=== PATIENT | female | born 1930 | race Caucasian/White ===

== ENCOUNTER 2017-11-22 08:05 | Inpatient (IN) | payer MEDICARE ==
[~2017-11-22] VITALS: Ht 154.9 cm; Wt 84.1 kg
[2017-11-22] VITALS (11 sets, daily range): BP systolic 108–196; BP diastolic 56–90; PULSE 64–80; RESP 18–20; TEMP 97.3–98.9; O2SAT 91–96
[2017-11-22] MEDS ORDERED: AMIT50TA3 PO (08:20)
[2017-11-22] MEDS ORDERED: ANAS1TAB PO (08:20)
[2017-11-22] MEDS ORDERED: CYAN100025 SL (08:20)
[2017-11-22] MEDS ORDERED: METO25TA3 PO (08:20)
[2017-11-22] MEDS ORDERED: LOSA100T PO (08:20)
[2017-11-22] MEDS ORDERED: GLIM4TAB PO (08:20)
[2017-11-22] MEDS ORDERED: LEVO88TA2 PO (08:20)
[2017-11-22] MEDS ORDERED: LANTINJ SQ (08:20)
[2017-11-22] MEDS ORDERED: CENTCHW4 CHEW (08:20)
[2017-11-22] MEDS ORDERED: ASPI-516 CHEW (08:20)
[2017-11-22] MEDS ORDERED: PRAM1TAB PO (08:20)
[2017-11-22] MEDS ORDERED: ATOR10TA15 PO (08:20)
[2017-11-22] MEDS ORDERED: PRAM0.5T PO (08:20)
[2017-11-22] MEDS ORDERED: VITA2000 PO (08:20)
[2017-11-22] MEDS ORDERED: ISOS120T PO (08:20)
[2017-11-22] MEDS ORDERED: AMLO2.5T PO (08:20)
--- NOTE | 2017-11-22 08:40 | PD ---
HPI Chief Complaint: ENT Complaint Time Seen by Provider: 08:27 Travel History International Travel<30 days: No Contact w/Intl Traveler<30days: No Traveled to known affect area: No History of Present Illness HPI Patient presents via [facility] with numerous complaints from [facility]. Reports of general malaise and weakness with bilateral hip pain and sore throat since yesterday. She did receive a flu shot this year. Denies nausea vomiting diarrhea. Questionable subjective fever. Reports decreased appetite over the last 4 days. Denies any chest pain shortness of breath urinary or bowel symptoms. Reports occasional cough. Hip pain is constant without aggravating or alleviating factors. 3 out of 10. Denies any misstep or falls. Upon further questioning patient currently recalls being on an antibiotic for UTI but unsure of what it is. Past medical history for Parkinson's, hypertension, diabetes, hyperlipidemia, coronary artery disease, hypothyroidism, history of breast cancer and COPD with O2 use at night which she does not do secondary to noise. Denies history of heart failure or renal failure. PFSH Past Medical History Cancer: Yes Cardiovascular Problems: Yes High Cholesterol: Yes Diabetes: Yes Patient Takes Glucophage: No Diminished Hearing: No Hypertension: Yes Thyroid Disease: Yes Influenza Vaccination: Yes ?: Not Past Surgical History Appendectomy: Yes Joint Replacement: Yes Tympanostomy Tube: Yes Other Surgery: Yes (right lumpectomy) Social History Alcohol Use: No Tobacco Use: No Allergies-Medications (Allergen,Severity, Reaction): Coded Allergies: diphtheria,pertussis (acellular),te (Verified Allergy, Unknown, 11/22/17) Reported Meds & Prescriptions Reported Meds & Active Scripts Active Reported Lantus Solostar Pen Inj (Insulin Glargine) 300 Unit/3 Ml Pen 15 Units SQ HS Vitamin D3 (Cholecalciferol) 2,000 Unit Cap 2,000 Units PO DAILY Pramipexole (Pramipexole Dihydrochloride) 1 Mg Tab 1 Mg PO HS Pramipexole (Pramipexole Dihydrochloride) 0.5 Mg Tab 0.5 Mg PO DAILY Metoprolol Tartrate 25 Mg Tab 25 Mg PO BID Losartan (Losartan Potassium) 100 Mg Tab 100 Mg PO DAILY Levothyroxine (Levothyroxine Sodium) 88 Mcg Tab 88 Mcg PO DAILY Isosorbide Mononitrate ER (Isosorbide Mononitrate) 120 Mg Esperanza 120 Mg PO DAILY Glimepiride 4 Mg Tab 4 Mg PO DAILY Take with breakfast or first main meal B-12 (Cyanocobalamin) 1,000 Mcg Subl 1,000 Mcg SL DAILY Centrum (Multiple Vitamins W/ Minerals) 1 Chew 1 Tab CHEW DAILY Atorvastatin (Atorvastatin Calcium) 10 Mg Tab 10 Mg PO HS Aspirin 81 Mg Chew 81 Mg CHEW DAILY Anastrozole 1 Mg Tab 1 Mg PO DAILY Amlodipine (Amlodipine Besylate) 2.5 Mg Tab 2.5 Mg PO DAILY Amitriptyline (Amitriptyline HCl) 50 Mg Tab 50 Mg PO HS Review of Systems ROS Limitations: Poor Historian General / Constitutional: Positive: Fever Eyes: No: Visual changes HENT: Positive: Sore Throat, No: Headaches Cardiovascular: No: Chest Pain or Discomfort Respiratory: Positive: Cough, No: Shortness of Breath Gastrointestinal: No: Abdominal Pain Genitourinary: No: Dysuria Musculoskeletal: Positive: Myalgias, Arthralgias, No: Pain Skin: No Rash Neurologic: No: Weakness Psychiatric: No: Depression Endocrine: No: Polydipsia Hematologic/Lymphatic: No: Easy Bruising Physical Exam Narrative GENERAL: Well-nourished, well-developed patient. SKIN: Focused skin assessment warm/dry. HEAD: Normocephalic. EYES: No scleral icterus. No injection or drainage. NECK: Supple, trachea midline. No JVD or lymphadenopathy. CARDIOVASCULAR: Regular rate and rhythm without murmurs, gallops, or rubs. RESPIRATORY: Breath sounds equal bilaterally. No accessory muscle use. GASTROINTESTINAL: Abdomen soft, non-tender, nondistended. MUSCULOSKELETAL: No cyanosis, or edema. BACK: Nontender without obvious deformity. No CVA tenderness. Data Data Last Documented VS Vital Signs Date Time Temp Pulse Resp B/P (MAP) Pulse Ox O2 Delivery O2 Flow Rate FiO2 11/22/17 10:54 80 18 147/67 (93) 92 Room Air 11/22/17 08:07 98.9 Orders Orders Complete Blood Count With Diff (11/22/17 08:27) Comprehensive Metabolic Panel (11/22/17 08:27) Urinalysis - C+S If Indicated (11/22/17 08:27) Chest, Single Ap (11/22/17 ) Influenzae A/B Antigen (11/22/17 08:27) Urine Culture (11/22/17 08:40) B-Type Natriuretic Peptide (11/22/17 09:39) Ceftriaxone Inj (Rocephin Inj) (11/22/17 09:45) Potassium Chloride (Kcl) (11/22/17 10:15) Sodium Chlor 0.9% 1000 Ml Inj (Ns 1000 M (11/22/17 11:15) Labs Laboratory Tests Test 11/22/17 08:35 11/22/17 08:40 White Blood Count 9.0 TH/MM3 Red Blood Count 3.65 MIL/MM3 Hemoglobin 11.5 GM/DL Hematocrit 33.4 % Mean Corpuscular Volume 91.7 FL Mean Corpuscular Hemoglobin 31.4 PG Mean Corpuscular Hemoglobin Concent 34.3 % Red Cell Distribution Width 14.7 % Platelet Count 188 TH/MM3 Mean Platelet Volume 6.9 FL Neutrophils (%) (Auto) 84.2 % Lymphocytes (%) (Auto) 3.5 % Monocytes (%) (Auto) 5.6 % Eosinophils (%) (Auto) 5.3 % Basophils (%) (Auto) 1.4 % Neutrophils # (Auto) 7.6 TH/MM3 Lymphocytes # (Auto) 0.3 TH/MM3 Monocytes # (Auto) 0.5 TH/MM3 Eosinophils # (Auto) 0.5 TH/MM3 Basophils # (Auto) 0.1 TH/MM3 CBC Comment DIFF FINAL Differential Comment Blood Urea Nitrogen 43 MG/DL Creatinine 3.10 MG/DL Random Glucose 100 MG/DL Total Protein 7.2 GM/DL Albumin 3.4 GM/DL Calcium Level 8.2 MG/DL Alkaline Phosphatase 107 U/L Aspartate Amino Transf (AST/SGOT) 24 U/L Alanine Aminotransferase (ALT/SGPT) 28 U/L Total Bilirubin 0.4 MG/DL Sodium Level 137 MEQ/L Potassium Level 3.2 MEQ/L Chloride Level 102 MEQ/L Carbon Dioxide Level 25.4 MEQ/L Anion Gap 10 MEQ/L Estimat Glomerular Filtration Rate 14 ML/MIN B-Type Natriuretic Peptide 108 PG/ML Urine Collection Type CATH Urine Color YELLOW Urine Turbidity CLEAR Urine pH 5.0 Urine Specific [place] 1.010 Urine Protein TRACE mg/dL Urine Glucose (UA) NEG mg/dL Urine Ketones NEG mg/dL Urine Occult Blood MOD Urine Nitrite POS Urine Bilirubin NEG Urine Urobilinogen 0.2 MG/DL Urine Leukocyte Esterase NEG Urine RBC 50-99 /hpf Urine WBC 0-2 /hpf Urine Squamous Epithelial Cells 6-8 /hpf Urine Bacteria FEW /hpf Microscopic Urinalysis Comment CATH-CULTURE IND Urine Collection Time 08:40 [facility] Medical Decision Making Medical Screen Exam Complete: Yes Emergency Medical Condition: Yes Differential Diagnosis Influenza, viral syndrome, osteoarthritis, pharyngitis, UTI Narrative Course Assessment plan discussed patient bedside. Urinalysis is positive for nitrates. CBC reveals mild anemia without elevation of white count. CMP reveals a hypokalemia and renal insufficiency with a BUN/creatinine of 43 and 3.1 unknown chronicity. Last 72 hours Impressions Chest X-Ray 11/22/17 0000 Signed Impressions: Service Date/Time: Wednesday, November 22, 2017 08:51 - CONCLUSION: Radiographic findings suggestive of congestive heart failure and pulmonary edema. This appearance is also compatible with viral infection or atypical pneumonia. Consider upright PA and lateral views when clinically able. Ericka Leo MD Physician Communication Physician Communication Spoke with Dr. Chapman who is in agreement will admit for observation and assessment of renal function and IV treatment for UTI Diagnosis Primary Impression: UTI (urinary tract infection) Qualified Codes: N39.0 - Urinary tract infection, site not specified; R31.9 - Hematuria, unspecified Additional Impression: Renal insufficiency John Velásquez MD Nov 22, 2017 08:40
[2017-11-22 08:49] LABS: BILIRUBIN, URINE NEG (NEG); BLOOD, URINE MOD (NEG); GLUCOSE,URINE NEG (NEG); KETONE, URINE NEG (NEG); NITRITE,URINE POS (NEG); URINE COLOR YELLOW (YELLW/STRAW); URINE LEUKOCYTE ESTERASE NEG (NEG)
[2017-11-22 08:50] LABS: AUTOMATED NEUTROPHIL # 7.6 TH/MM3 (1.8-7.7); BASOPHIL # 0.1 TH/MM3 (0-0.2); BASOPHIL % 1.4 % (0.0-2.0); EOSINOPHIL # 0.5 TH/MM3 (0-0.4); EOSINOPHIL % 5.3 % (0.0-4.0); HEMATOCRIT 33.4 % (35.0-46.0); HEMOGLOBIN 11.5 GM/DL (11.6-15.3); LYMPH % 3.5 % (9.0-44.0); LYMPHOCYTE # 0.3 TH/MM3 (1.0-4.8); MEAN CELL VOLUME 91.7 FL (80.0-100.0); MEAN CORPUSCULAR HEMOGLOBIN 31.4 PG (27.0-34.0); MEAN CORPUSCULAR HGB CONC 34.3 % (32.0-36.0); MEAN PLATELET VOLUME 6.9 FL (7.0-11.0); MONO % 5.6 % (0.0-8.0); MONOCYTE # 0.5 TH/MM3 (0-0.9); NEUT % 84.2 % (16.0-70.0); PLATELET COUNT 188 TH/MM3 (150-450); RED BLOOD COUNT 3.65 MIL/MM3 (4.00-5.30); RED CELL DISTRIBUTION WIDTH 14.7 % (11.6-17.2)
[2017-11-22 08:53] LABS: WBC, URINE 0-2 /hpf (0-5)
[2017-11-22 08:54] LABS: BACTERIA, URINE FEW /hpf
[2017-11-22 08:59] LABS: CHLORIDE 102 MEQ/L (98-107); SODIUM (NA) 137 MEQ/L (136-145)
[2017-11-22 09:02] LABS: ALBUMIN 3.4 GM/DL (3.4-5.0); BICARBONATE 25.4 MEQ/L (21.0-32.0); BLOOD UREA NITROGEN 43 MG/DL (7-18); CALCIUM 8.2 MG/DL (8.5-10.1); GLUCOSE,RANDOM 100 MG/DL (74-106)
[2017-11-22 09:05] LABS: ALT (GPT) 28 U/L (10-53); AST (GOT) 24 U/L (15-37)
[2017-11-22 09:06] LABS: GLOMERULAR FILTRATION RATE 14 ML/MIN (>89)
[2017-11-22 09:07] LABS: TOTAL BILIRUBIN ADULT 0.4 MG/DL (0.2-1.0); TOTAL PROTEIN 7.2 GM/DL (6.4-8.2)
[2017-11-22 09:08] LABS: ALKALINE PHOSPHATASE 107 U/L (45-117)
--- NOTE | 2017-11-22 09:21 | RADRPT ---
EXAM DATE/TIME: 11/22/2017 08:51 [facility] COMPARISON: No previous studies available for comparison. INDICATIONS : Cough and congestion. MEDICAL HISTORY : None. SURGICAL HISTORY : None. ENCOUNTER: Initial ACUITY: 3 days PAIN SCORE: 5/10 LOCATION: Bilateral chest FINDINGS: Single portable upright view of the chest demonstrates mild enlargement of cardiac silhouette. Mild d iffuse cephalization of pulmonary vascular structures and bilateral predominantly basilar interstitia l prominence. The lungs are hypoinflated. Osseous structures are grossly unremarkable. There is a rig ht shoulder prosthesis present. CONCLUSION: Radiographic findings suggestive of congestive heart failure and pulmonary edema. This appearance is also compatible with viral infection or atypical pneumonia. Consider upright PA and lateral views whe n clinically able. Ericka Leo MD on November 22, 2017 at 9:17 Board Certified Radiologist. This report was verified electronically.
[2017-11-22] MEDS ORDERED: cefTRIAXone INJ 1,000 MG in SODIUM CHLORIDE 0.9% INJ 100 ML IV ONE (09:45)
[2017-11-22] MEDS ORDERED: POTASSIUM CHLORIDE 20 MEQ CONTROLLED RELEASE TAB PO ONE (10:15)
[2017-11-22] MEDS ORDERED: SODIUM CHLOR 0.9% 1000 ML INJ 1,000 ML IV ONE (11:15)
--- NOTE | 2017-11-22 13:23 | HHI.HP ---
[facility] Ad[facility] Diagnosis UTI, renal insufficiency Diagnoses: (1) UTI (urinary tract infection) (2) Renal insufficiency Chief Complaint: Generalized weakness, subjective fevers and chills Failed outpatient antibiotic for UTI Travel History International Travel<30 Days: No Contact w/Intl Traveler <30 Da: No Traveled to Known Affected Are: No History of Present Illness This is an 87-year-old female patient with a known medical history of CAD, hypercholesterolemia, diabetes, hypertension and questionable CHF who presented to the ED with complaints of generalized weakness, fevers, chills, nausea and occasional vomiting for 2 days. Patient states she was diagnosed with a UTI last week finished her antibiotic dose this morning and despite antibiotics course her symptoms have not improved but have actually worsened. She states she has bilateral CVA tenderness and hip pain, rating it a 10 out of 10 on pain scale at its worst. Denies any dysuria. Does admit to poor appetite and occasional vomiting. She also states that she has a history of PVD and history of following with a vascular surgeon for lower extremity vascular repair, but over the course of the last 2 weeks she has developed bilateral lower extremity redness and swelling and increasing pain with walking. She does have an appointment on Friday to follow-up with her vascular surgeon. She just recently moved down to [place] from [facility] and has not established with the PCP yet. Patient does live alone in assisted living. Review of Systems Constitutional: COMPLAINS OF: Diaphoretic episodes, Fatigue, Fever, Chills Eyes: DENIES: Diplopia Respiratory: COMPLAINS OF: Shortness of breath, DENIES: Cough, Sputum production Cardiovascular: DENIES: Chest pain, Palpitations Gastrointestinal: COMPLAINS OF: Nausea, Vomiting, DENIES: Abdominal pain, Black stools, Bloody stools, Constipation, Diarrhea Musculoskeletal: DENIES: Joint pain Psychiatric: COMPLAINS OF: Anxiety Except as stated in HPI: all other systems reviewed are Neg Past Family Social History Past Medical History History of CAD Hypertension Hypercholesterolemia Hypertension Thyroid disease History of breast cancer Past Surgical History Appendectomy Right hip replacement Right shoulder replacement Tympanostomy tube Unspecified vascular surgery of bilateral lower extremities Right breast lumpectomy Reported Medications Active Reported Lantus Solostar Pen Inj (Insulin Glargine) 300 Unit/3 Ml Pen 15 Units SQ HS Vitamin D3 (Cholecalciferol) 2,000 Unit Cap 2,000 Units PO DAILY Pramipexole (Pramipexole Dihydrochloride) 1 Mg Tab 1 Mg PO HS Pramipexole (Pramipexole Dihydrochloride) 0.5 Mg Tab 0.5 Mg PO DAILY Metoprolol Tartrate 25 Mg Tab 25 Mg PO BID Losartan (Losartan Potassium) 100 Mg Tab 100 Mg PO DAILY Levothyroxine (Levothyroxine Sodium) 88 Mcg Tab 88 Mcg PO DAILY Isosorbide Mononitrate ER (Isosorbide Mononitrate) 120 Mg Esperanza 120 Mg PO DAILY Glimepiride 4 Mg Tab 4 Mg PO DAILY Take with breakfast or first main meal B-12 (Cyanocobalamin) 1,000 Mcg Subl 1,000 Mcg SL DAILY Centrum (Multiple Vitamins W/ Minerals) 1 Chew 1 Tab CHEW DAILY Atorvastatin (Atorvastatin Calcium) 10 Mg Tab 10 Mg PO HS Aspirin 81 Mg Chew 81 Mg CHEW DAILY Anastrozole 1 Mg Tab 1 Mg PO DAILY Amlodipine (Amlodipine Besylate) 2.5 Mg Tab 2.5 Mg PO DAILY Amitriptyline (Amitriptyline HCl) 50 Mg Tab 50 Mg PO HS Allergies: Coded Allergies: diphtheria,pertussis (acellular),te (Verified Allergy, Unknown, 11/22/17) Active Ordered Medications Current Medications Medications (Trade) Dose Ordered Sig/Ric Route Start Time Stop Time Status Last Admin Sodium Chloride 1,000 ml @ 150 mls/hr BOLUS ONCE IV 11/22/17 11:15 11/22/17 17:54 11/22/17 11:31 Family History Paternal medical history significant for [place]. Mother had a history of hypertension and diabetes Social History Denies any tobacco use, alcohol or illicit drug use. Physical Exam Vital Signs Vital Signs Date Time Temp Pulse Resp B/P (MAP) Pulse Ox O2 Delivery O2 Flow Rate FiO2 11/22/17 12:27 162/67 (98) 92 11/22/17 10:54 80 18 147/67 (93) 92 Room Air 11/22/17 09:14 76 18 152/72 (98) 91 Room Air 11/22/17 08:07 98.9 78 18 169/56 (86) 92 Physical Exam GENERAL: Well-developed, well-nourished patient in NAD. SKIN: Warm and dry. No rash. Bilateral lower extremity erythema, mild swelling. HEAD: Normocephalic. Atraumatic. EYES: Pupils equal and round. No scleral icterus. No injection or drainage. ENT: No nasal bleeding or discharge. Mucous membranes pink and moist. NECK: Supple. Trachea midline. CARDIOVASCULAR: Regular rate and rhythm. S1, S2 noted. RESPIRATORY: No accessory muscle use. Clear to auscultation. Breath sounds equal bilaterally. GASTROINTESTINAL: Abdomen soft, non-tender, nondistended. Normoactive bowel sounds x4. : CVA tenderness. MUSCULOSKELETAL: No obvious deformities. NEUROLOGICAL: Awake and alert. No obvious cranial nerve deficits. Motor grossly within normal limits. 5/5 muscle strength in bilateral upper and lower extremities. Normal speech. PSYCHIATRIC: Appropriate mood and affect; insight and judgment normal. Laboratory Laboratory Tests Test 11/22/17 08:35 11/22/17 08:40 White Blood Count 9.0 Red Blood Count 3.65 Hemoglobin 11.5 Hematocrit 33.4 Mean Corpuscular Volume 91.7 Mean Corpuscular Hemoglobin 31.4 Mean Corpuscular Hemoglobin Concent 34.3 Red Cell Distribution Width 14.7 Platelet Count 188 Mean Platelet Volume 6.9 Neutrophils (%) (Auto) 84.2 Lymphocytes (%) (Auto) 3.5 Monocytes (%) (Auto) 5.6 Eosinophils (%) (Auto) 5.3 Basophils (%) (Auto) 1.4 Neutrophils # (Auto) 7.6 Lymphocytes # (Auto) 0.3 Monocytes # (Auto) 0.5 Eosinophils # (Auto) 0.5 Basophils # (Auto) 0.1 CBC Comment DIFF FINAL Differential Comment Blood Urea Nitrogen 43 Creatinine 3.10 Random Glucose 100 Total Protein 7.2 Albumin 3.4 Calcium Level 8.2 Alkaline Phosphatase 107 Aspartate Amino Transf (AST/SGOT) 24 Alanine Aminotransferase (ALT/SGPT) 28 Total Bilirubin 0.4 Sodium Level 137 Potassium Level 3.2 Chloride Level 102 Carbon Dioxide Level 25.4 Anion Gap 10 Estimat Glomerular Filtration Rate 14 B-Type Natriuretic Peptide 108 Urine Collection Type CATH Urine Color YELLOW Urine Turbidity CLEAR Urine pH 5.0 Urine Specific [place] 1.010 Urine Protein TRACE Urine Glucose (UA) NEG Urine Ketones NEG Urine Occult Blood MOD Urine Nitrite POS Urine Bilirubin NEG Urine Urobilinogen 0.2 Urine Leukocyte Esterase NEG Urine RBC 50-99 Urine WBC 0-2 Urine Squamous Epithelial Cells 6-8 Urine Bacteria FEW Microscopic Urinalysis Comment CATH-CULTURE IND Urine Collection Time 08:40 Date/Time Source Procedure Growth Status 11/22/17 08:30 Nasal Aspirate Influenza Types A,B Antigen (LISA) - Final NEGATIVE FOR FLU A AND B ANTIGEN.... Complete 11/22/17 08:40 Urine Clean Catch Urine Culture Pending Received Result Diagram: 11/22/17 0835 11/22/17 0835 Imaging Last Impressions Chest X-Ray 11/22/17 0000 Signed Impressions: Service Date/Time: Wednesday, November 22, 2017 08:51 - CONCLUSION: Radiographic findings suggestive of congestive heart failure and pulmonary edema. This appearance is also compatible with viral infection or atypical pneumonia. Consider upright PA and lateral views when clinically able. Ericka Leo MD Septic Shock Reassessment Septic shock perfusion: reassessment completed Caprini VTE Risk Assessment Caprini VTE Risk Assessment: Mod/High Risk (score >= 2) Caprini Risk Assessment Model Point Value = 1 Point Value = 2 Point Value = 3 Point Value = 5 Age 41-60 Minor surgery BMI > 25 kg/m2 Swollen legs Varicose veins or History of unexplained or recurrent spontaneous Oral contraceptives or hormone replacement Sepsis (< 1 month) Serious lung disease, including pneumonia (< 1 month) Abnormal pulmonary function Acute myocardial infarction Congestive heart failure (< 1 month) History of inflammatory bowel disease Medical patient at bed rest Age 61-74 Arthroscopic surgery Major open surgery (> 45 min) Laparoscopic surgery (> 45 min) Malignancy Confined to bed (> 72 hours) Immobilizing plaster cast Central venous access Age >= 75 History of VTE Family history of VTE Factor V Leiden Prothrombin [id number] Lupus anticoagulant Anticardiolipin antibodies Elevated serum homocysteine Heparin-induced thrombocytopenia Other congenital or acquired thrombophilia Stroke (< 1 month) Elective arthroplasty Hip, pelvis, or leg fracture Acute spinal cord injury (< 1 month) Prophylaxis Regimen Total Risk Factor Score Risk Level Prophylaxis Regimen 0-1 Low Early ambulation 2 Moderate Order ONE of the following: *Sequential Compression Device (SCD) *Heparin 5000 units SQ BID 3-4 Higher Order ONE of the following medications: *Heparin 5000 units SQ TID *Enoxaparin/Lovenox 40 mg SQ daily (WT < 150 kg, CrCl > 30 mL/min) *Enoxaparin/Lovenox 30 mg SQ daily (WT < 150 kg, CrCl > 10-29 mL/min) *Enoxaparin/Lovenox 30 mg SQ BID (WT < 150 kg, CrCl > 30 mL/min) AND/OR *Sequential Compression Device (SCD) 5 or more Highest Order ONE of the following medications: *Heparin 5000 units SQ TID (Preferred with Epidurals) *Enoxaparin/Lovenox 40 mg SQ daily (WT < 150 kg, CrCl > 30 mL/min) *Enoxaparin/Lovenox 30 mg SQ daily (WT < 150 kg, CrCl > 10-29 mL/min) *Enoxaparin/Lovenox 30 mg SQ BID (WT < 150 kg, CrCl > 30 mL/min) AND *Sequential Compression Device (SCD) Assessment and Plan Problem List: (1) UTI (urinary tract infection) ICD Code: N39.0 - Urinary tract infection, site not specified Status: Acute (2) Renal insufficiency ICD Code: N28.9 - Disorder of kidney and ureter, unspecified Status: Acute Assessment and Plan This is an 87-year-old female patient with a known medical history of CAD, hypercholesterolemia, diabetes, hypertension and questionable CHF who presented to the ED with complaints of generalized weakness, fevers, chills, nausea and occasional vomiting for 2 days. Urinary tract infection with abnormal UA - Patient failed outpatient therapy, recently diagnosed with UTI and finished course of antibiotics, persistent symptoms. Subjective fevers at home. UA showing bacteria. Awaiting urine culture. Placed on ceftriaxone IV. Acute on chronic kidney injury: Renal insufficiency. Creatinine on presentation 2.2. Patient is from [facility] and we do not have records to compare. Patient is unaware of prior labs her creatinine level, questionable chronic kidney disease. Will continue to monitor BMP. Will obtain urine ultrasound. Continue to follow. Avoid nephrotoxins. Congestive heart failure, unspecified type: Chest x-ray reviewed showing congestive heart failure and pulmonary edema. BNP 108. Will obtain echocardiogram, follow. Monitor intake and output closely. Spoke to son who states patient was recently placed on diuretic this week but unaware of medication name. Hypertension, chronic: Continue home medications. Monitor BP trend, mildly elevated. Hypokalemia: K3.2. Replaced in ED. Monitor BMP. Hypothyroidism, chronic: Continue home Synthroid. History of breast cancer on Arimidex, continue. DVT prophylaxis: Heparin. Problem Qualifiers (1) UTI (urinary tract infection): Qualified Codes: N39.0 - Urinary tract infection, site not specified; R31.9 - Hematuria, unspecified Nilda Rivera Nov 22, 2017 13:23
[2017-11-22] MEDS ORDERED: MAGNESIUM HYDROXIDE SUSP 30 ML CUP PO PRN (14:00)
[2017-11-22] MEDS ORDERED: NALOXONE HCL 0.4 MG/ML AMP IV PUSH PRN (14:00)
[2017-11-22] MEDS ORDERED: ACETAMINOPHEN 325 MG TAB PO PRN (14:00)
[2017-11-22] MEDS ORDERED: SODIUM CHLORIDE 0.9% FLUSH 10 ML FLUSH IV FLUSH PRN (14:00)
[2017-11-22] MEDS ORDERED: SENNOSIDES 8.6 MG TAB PO PRN (14:00)
[2017-11-22] MEDS ORDERED: ONDANSETRON HCL 4 MG/2 ML VIAL IVP PRN (14:00)
[2017-11-22] MEDS ORDERED: BISACODYL 10 MG SUPP RECTAL PRN (14:00)
[2017-11-22] MEDS ORDERED: HEPARIN SODIUM - SQ 10,000 UNITS/ML VIAL SQ ONE (14:45)
[2017-11-22] MEDS ORDERED: GLUCAGON 1 MG/ML VIAL OTHER PRN (16:15)
[2017-11-22] MEDS ORDERED: cloNIDine HCL 0.1 MG TAB PO PRN (16:15)
[2017-11-22] MEDS ORDERED: DEXTROSE 50% IN WATER 50 ML VIAL(D50) IV PUSH PRN (16:15)
--- NOTE | 2017-11-22 17:16 | RADRPT ---
EXAM DATE/TIME: 11/22/2017 16:29 [facility] COMPARISON: CHEST SINGLE AP, November 22, 2017, 8:51. INDICATIONS : Cough and congestion. MEDICAL HISTORY : None. SURGICAL HISTORY : None. ENCOUNTER: Subsequent ACUITY: 3 days PAIN SCORE: 5/10 LOCATION: Bilateral chest FINDINGS: The heart is normal in size. There are chronic appearing interstitial changes. The lungs are otherwis e clear. The visualized bony structures demonstrate degenerative change but are otherwise intact. The patient is post right shoulder arthroplasty. The overall appearance of the parenchyma is similar to the prior study dated 11/22/17 timed at 851 hour s. CONCLUSION: 1. Chronic interstitial changes. No acute abnormality. Stephen Chaudhari MD on November 22, 2017 at 17:13 Board Certified Radiologist. This report was verified electronically.
[2017-11-22] MEDS: INSULIN ASPART SUPPLEMENTAL SCALE SQ SCH ×2 (17:23→20:57)
--- NOTE | 2017-11-22 17:30 | RADRPT ---
EXAM DATE/TIME: 11/22/2017 15:33 [facility] COMPARISON: No previous studies available for comparison. INDICATIONS : Increased BUN and Creatinine with UTI. MEDICAL HISTORY : Cardiovascular disease. Hypercholesterolemia. Hypertension. Diabetes. PVD. Thyroid Disease. Breast Cancer. SURGICAL HISTORY : Appendectomy. Thyroidectomy. Right shoulder replacement. Right hip replacement. Tympanostomy tube . Right Breast lumpectomy. Unspecified vascular surgery of bilateral lower extremities. ENCOUNTER: Initial ACUITY: 2 days PAIN SCORE: 0/10 LOCATION: MEASUREMENTS: RIGHT KIDNEY: 10.8 x 5.4 x 5.5 cm LEFT KIDNEY: 11.0 x 4.7 x 6.0 cm FINDINGS: RIGHT KIDNEY: Renal cortex is normal in thickness and echotexture. No hydronephrosis, stone, or mass. LEFT KIDNEY: Renal cortex is normal in thickness and echotexture. No hydronephrosis, stone, or mass. BLADDER: Within normal limits given the degree of distension. CONCLUSION: No acute disease. Howard Askew MD on November 22, 2017 at 17:28 Board Certified Radiologist. This report was verified electronically.
--- NOTE | 2017-11-22 17:56 | ECHRPT ---
Indication: HEART FAILURE CONCLUSIONS The left ventricular systolic function is low normal with an estimated ejection fraction in the rang e of 55- 60%. Doppler parameters are consistent with impaired left ventricular relaxtion (grade 1 diastolic dysfun ction). Trace mitral valve regurgitation. There is trace tricuspid valve regurgitation. BP: / HR: Rhythm: MEASUREMENTS (Male / Female) Normal Values Technical Quality: 2D ECHO LV Diastolic Diameter PLAX 4.2 cm 4.2 - 5.9 / 3.9 - 5.3 cm LV Systolic Diameter PLAX 3.2 cm IVS Diastolic Thickness 1.1 cm 0.6 - 1.0 / 0.6 - 0.9 cm LVPW Diastolic Thickness 1.0 cm 0.6 - 1.0 / 0.6 - 0.9 cm LV Relative Wall Thickness 0.5 LVOT Diameter 2.0 cm M-MODE Aortic Root Diameter MM 2.6 cm LA Systolic Diameter MM 4.4 cm LA Ao Ratio MM 1.7 AV Cusp Separation MM 2.0 cm DOPPLER AV Peak Velocity 175.0 cm/s AV Peak Gradient 12.3 mmHg LVOT Peak Velocity 138.0 cm/s LVOT Peak Gradient 7.6 mmHg AV Area Cont Eq pk 2.5 cm MV Area PHT 2.7 cm Mitral E Point Velocity 88.4 cm/s Mitral A Point Velocity 117.0 cm/s Mitral E to A Ratio 0.8 LV E' Lateral Velocity 7.0 cm/s Mitral E to LV E' Lateral Ratio 12.7 LV E' Septal Velocity 5.3 cm/s Mitral E to LV E' Septal Ratio 16.8 TR Peak Velocity 227.0 cm/s TR Peak Gradient 20.6 mmHg Right Atrial Pressure 10.0 mmHg Pulmonary Artery Systolic Pressu 30.6 mmHg Right Ventricular Systolic Press 30.6 mmHg PV Peak Velocity 102.0 cm/s PV Peak Gradient 4.2 mmHg FINDINGS LEFT VENTRICLE The left ventricular systolic function is low normal with an estimated ejection fraction in the rang e of 55- 60% Normal left ventricular size. Wall thickness is normal. Doppler parameters are consistent with impaired left ventricular relaxtion (grade 1 diastolic dysfun ction). RIGHT VENTRICLE Normal right ventricular size and systolic function. LEFT ATRIUM The left atrial size is mildly dilated. RIGHT ATRIUM The right atrial size is normal. ATRIAL SEPTUM Normal atrial septal thickness without atrial level shunting by limited color doppler interrogation. AORTA The aortic root and proximal ascending aorta are normal in size on limited imaging. MITRAL VALVE Structurally normal mitral valve. Trace mitral valve regurgitation. No mitral valve stenosis. AORTIC VALVE Trileaflet aortic valve. No aortic valve stenosis or regurgitation. TRICUSPID VALVE Structurally normal tricuspid valve. There is trace tricuspid valve regurgitation. The estimated pulmonary arterial pressure is 30.6 mmHg. PULMONARY VALVE No pulmonary valve regurgitation or stenosis. VESSELS The inferior vena cava is normal in size. PERICARDIUM No pericardial effusion. Francisco Rossi DO (Electronically Signed) Final Date:22 November 2017 17:55
[2017-11-22] MEDS: PRAMIPEXOLE DIHYDROCHLORIDE 1 MG TAB PO SCH (20:44)
[2017-11-22] MEDS: AMITRIPTYLINE HCL 50 MG TAB PO SCH (20:44)
[2017-11-22] MEDS: ATORVASTATIN 10 MG TAB PO SCH (20:45)
[2017-11-22] MEDS: DOCUSATE SODIUM 50 MG/SENNA 8.6 MG TAB PO SCH (20:45)
[2017-11-22] MEDS: SODIUM CHLORIDE 0.9% FLUSH 10 ML FLUSH IV FLUSH SCH (20:45)
[2017-11-22] MEDS: METOPROLOL TARTRATE 25 MG TAB PO SCH (20:56)
[2017-11-22] MEDS ORDERED: cefTRIAXone INJ 2,000 MG in SODIUM CHLORIDE 0.9% INJ 100 ML IV SCH (22:00)
[2017-11-22] MEDS: HEPARIN SODIUM - SQ 10,000 UNITS/ML VIAL SQ SCH (23:00)
[2017-11-23] VITALS (10 sets, daily range): BP systolic 114–169; BP diastolic 61–70; PULSE 59–80; RESP 16–21; TEMP 97.2–99.2; O2SAT 87–96
[2017-11-23] MEDS: LEVOTHYROXINE SODIUM 88 MCG TAB PO SCH (05:50)
[2017-11-23] MEDS: ISOSORBIDE MONONITRATE 60 MG CR TAB (IMDUR) PO SCH (07:31)
[2017-11-23] MEDS: INSULIN ASPART SUPPLEMENTAL SCALE SQ SCH ×4 (07:39→21:00)
[2017-11-23] MEDS: METOPROLOL TARTRATE 25 MG TAB PO SCH ×2 (09:00→21:19)
[2017-11-23] MEDS ORDERED: amLODIPine BESYLATE 5 MG TAB PO SCH (09:00)
[2017-11-23 09:25] LABS: AUTOMATED NEUTROPHIL # 5.1 TH/MM3 (1.8-7.7); BASOPHIL % 0.2 % (0.0-2.0); EOSINOPHIL # 0.5 TH/MM3 (0-0.4); EOSINOPHIL % 8.4 % (0.0-4.0); HEMATOCRIT 32.4 % (35.0-46.0); HEMOGLOBIN 10.7 GM/DL (11.6-15.3); LYMPH % 7.4 % (9.0-44.0); LYMPHOCYTE # 0.5 TH/MM3 (1.0-4.8); MEAN CELL VOLUME 91.8 FL (80.0-100.0); MEAN CORPUSCULAR HEMOGLOBIN 30.4 PG (27.0-34.0); MEAN CORPUSCULAR HGB CONC 33.1 % (32.0-36.0); MEAN PLATELET VOLUME 7.4 FL (7.0-11.0); MONO % 6.8 % (0.0-8.0); MONOCYTE # 0.4 TH/MM3 (0-0.9); NEUT % 77.2 % (16.0-70.0); PLATELET COUNT 192 TH/MM3 (150-450); RED BLOOD COUNT 3.53 MIL/MM3 (4.00-5.30); WHITE BLOOD COUNT 6.5 TH/MM3 (4.0-11.0)
[2017-11-23 09:55] LABS: BICARBONATE 25.8 MEQ/L (21.0-32.0)
[2017-11-23 09:58] LABS: CREATININE 2.4 MG/DL (0.50-1.00)
--- NOTE | 2017-11-23 10:07 | HHI.PR ---
Subjective Remarks Follow-up UTI and CHF. Patient seen and examined, sitting up in chair comfortably in no apparent distress. On 2 L nasal cannula. Does state she is dyspneic with ambulation. Mild improvement in creatinine. Renal US normal. Patient states she has not had a bowel movement for 6 days, finally had one this morning. Urine culture with no growth. DC antibiotic. Afebrile. Objective Vitals Vital Signs Date Time Temp Pulse Resp B/P (MAP) Pulse Ox O2 Delivery O2 Flow Rate FiO2 11/23/17 07:25 97.5 64 18 169/70 (103) 94 11/23/17 04:00 98.0 60 16 136/62 (86) 90 11/23/17 00:00 97.2 59 21 114/62 (79) 95 11/22/17 20:00 98.8 64 20 141/64 (89) 93 11/22/17 20:00 93 Nasal Cannula 2.00 11/22/17 17:27 91 21 11/22/17 17:20 97.6 79 19 196/82 (120) 93 11/22/17 16:02 75 11/22/17 16:00 98.9 79 18 140/90 (107) 91 11/22/17 14:00 97.3 72 18 168/72 (104) 94 11/22/17 12:27 162/67 (98) 92 11/22/17 12:00 97.3 72 18 167/72 (103) 94 11/22/17 10:54 80 18 147/67 (93) 92 Room Air I/O 11/22/17 11/22/17 11/22/17 11/23/17 11/23/17 11/23/17 07:00 15:00 23:00 07:00 15:00 23:00 Intake Total 100 ml 1100 ml 480 ml Balance 100 ml 1100 ml 480 ml Intake Oral 480 ml IV Total 100 ml 1100 ml # Voids 2 1 2 # Bowel Movements 0 Result Diagram: 11/23/1782411/23/17824 Imaging Last Impressions Renal Ultrasound 11/22/17 0000 Signed Impressions: Service Date/Time: Wednesday, November 22, 2017 15:33 - CONCLUSION: No acute disease. Howard Askew MD Chest X-Ray 11/22/17 0000 Signed Impressions: Service Date/Time: Wednesday, November 22, 2017 16:29 - CONCLUSION: 1. Chronic interstitial changes. No acute abnormality. Stephen Chaudhari MD Objective Remarks GENERAL: Well-developed, well-nourished patient in NAD. SKIN: Warm and dry. No rash. Bilateral lower extremity erythema, mild swelling , history of PVD. HEAD: Normocephalic. Atraumatic. EYES: Pupils equal and round. No scleral icterus. No injection or drainage. ENT: No nasal bleeding or discharge. Mucous membranes pink and moist. NECK: Supple. Trachea midline. CARDIOVASCULAR: Regular rate and rhythm. S1, S2 noted. RESPIRATORY: No accessory muscle use. Clear to auscultation. Breath sounds equal bilaterally. GASTROINTESTINAL: Abdomen soft, non-tender, nondistended. Normoactive bowel sounds x4. : CVA tenderness. MUSCULOSKELETAL: No obvious deformities. NEUROLOGICAL: Awake and alert. No obvious cranial nerve deficits. Motor grossly within normal limits. 5/5 muscle strength in bilateral upper and lower extremities. Normal speech. PSYCHIATRIC: Appropriate mood and affect; insight and judgment normal. A/P Problem List: (1) UTI (urinary tract infection) ICD Code: N39.0 - Urinary tract infection, site not specified Status: Acute (2) Renal insufficiency ICD Code: N28.9 - Disorder of kidney and ureter, unspecified Status: Acute Assessment and Plan This is an 87-year-old female patient with a known medical history of CAD, hypercholesterolemia, diabetes, hypertension and questionable CHF who presented to the ED with complaints of generalized weakness, fevers, chills, nausea and occasional vomiting for 2 days. Acute on chronic? kidney injury - Recently diagnosed with UTI and finished course of antibiotics, persistent symptoms. Subjective fevers at home. Abnormal UA although urine culture with no growth 24 hours. DC IV antibiotics. - Creatinine on presentation 3.1. Today 2.4. Patient is from [facility] and we do not have records to compare. Patient is unaware of prior labs her creatinine level, states she has never had a problem in the past. - Will continue to monitor BMP. Renal US negative. Avoid nephrotoxins. Congestive heart failure, diastolic grade 1 - Echocardiogram reviewed showing EF 55-60% and showing impaired ventricular relaxation with grade 1 diastolic dysfunction. - Chest x-ray reviewed showing congestive heart failure and pulmonary edema. BNP 108 on presentation. Status post 500 ml bolus in ED. - Monitor intake and output closely. Order for daily weights. Spoke to son who states patient was recently placed on diuretic this week but unaware of medication name. - Will start low dose Lasix due to positive fluid balance. Continue to monitor I &O and creatinine. - Nephrology consulted, input and recommendations appreciated. Hypertension, chronic: Continue home medications. Monitor BP trend, mildly elevated. Clonidine PRN. Increased Amlodipine 2.5 mg daily to 5 mg daily. Hypokalemia: K3.2. Replaced in ED. Stable today. Monitor BMP. Hypothyroidism, chronic: Continue home Synthroid. History of breast cancer on Arimidex, continue. DVT prophylaxis: Heparin. Problem Qualifiers (1) UTI (urinary tract infection): Qualified Codes: N39.0 - Urinary tract infection, site not specified; R31.9 - Hematuria, unspecified Nilda Rivera Nov 23, 2017 10:07
[2017-11-23] MEDS: MULTIVITAMINS/MINERALS THERAPEUTIC TAB PO SCH (10:12)
[2017-11-23] MEDS: ASPIRIN 81 MG CHEW TAB CHEW SCH (10:12)
[2017-11-23] MEDS: ANASTROZOLE 1 MG TAB PO SCH (10:12)
[2017-11-23] MEDS: DOCUSATE SODIUM 50 MG/SENNA 8.6 MG TAB PO SCH ×2 (10:12→21:19)
[2017-11-23] MEDS: CYANOCOBALAMIN 1,000 MCG TAB PO SCH (10:13)
[2017-11-23] MEDS: PRAMIPEXOLE DIHYDROCHLORIDE 0.25 MG TAB PO SCH (10:13)
[2017-11-23] MEDS: CHOLECALCIFEROL (VIT D3) 1000 UNIT TAB PO SCH (10:13)
[2017-11-23] MEDS: SODIUM CHLORIDE 0.9% FLUSH 10 ML FLUSH IV FLUSH SCH ×2 (10:14→21:14)
[2017-11-23] MEDS ORDERED: BENZONATATE 100 MG CAP PO PRN (10:15)
[2017-11-23] MEDS: FUROSEMIDE 20 MG TAB PO SCH (12:16)
[2017-11-23] MEDS: HEPARIN SODIUM - SQ 10,000 UNITS/ML VIAL SQ SCH ×2 (12:16→21:19)
--- NOTE | 2017-11-23 17:00 | RADRPT ---
EXAM DATE/TIME: 11/23/2017 16:25 [facility] COMPARISON: No previous studies available for comparison. INDICATIONS : Bilateral lower leg redness. MEDICAL HISTORY : Cardiovascular disease. Hypercholesterolemia. Hypertension.Diabetes. PVD. Thyroid Disease. Breast Can cer. SURGICAL HISTORY : Appendectomy. Thyroidectomy. Right shoulder replacement. Right hip replacement. Tympanostomy tube. Ri ght Breast lumpectomy. Unspecified vascular surgery of bilateral lower extremities. ENCOUNTER: Initial ACUITY: 1 day PAIN SCORE: 0/10 LOCATION: Bilateral legs. TECHNIQUE: Venous ultrasound of the left and right leg was performed from the inguinal ligament to the proximal calf. Real-time, color Doppler and spectral tracing, compression and augmentation techniques were us ed. FINDINGS: RIGHT LEG: There is normal compressibility of the deep venous system from the inguinal region to the proximal ca lf. No echogenic clot is seen in the lumen of the common femoral, femoral, popliteal, and posterior tibial veins. There is a normal response of the venous system to proximal and distal augmentation an d respiration. LEFT LEG: There is normal compressibility of the deep venous system from the inguinal region to the proximal ca lf. No echogenic clot is seen in the lumen of the common femoral, femoral, popliteal, and posterior tibial veins. There is a normal response of the venous system to proximal and distal augmentation an d respiration. CONCLUSION: Negative study. No venous thrombosis of either lower extremity. Howard Casiano MD on November 23, 2017 at 16:57 Board Certified Radiologist. This report was verified electronically.
[2017-11-23] MEDS: NYSTATIN SUSP 500,000 U/5 ML CUP SWISH-SWAL SCH ×2 (18:00→21:24)
[2017-11-23] MEDS ORDERED: HYDR12.56 PO (20:11)
[2017-11-23] MEDS: PRAMIPEXOLE DIHYDROCHLORIDE 1 MG TAB PO SCH (21:19)
[2017-11-23] MEDS: ATORVASTATIN 10 MG TAB PO SCH (21:19)
[2017-11-23] MEDS: AMITRIPTYLINE HCL 50 MG TAB PO SCH (21:19)
[2017-11-23] MEDS ORDERED: diphenhydrAMINE HCL 50 MG CAP PO PRN (22:30)
[2017-11-24] VITALS (11 sets, daily range): BP systolic 144–183; BP diastolic 63–75; PULSE 56–81; RESP 16–20; TEMP 97.3–98.6; O2SAT 91–98
[2017-11-24] MEDS: LEVOTHYROXINE SODIUM 88 MCG TAB PO SCH (05:40)
[2017-11-24 07:03] LABS: AUTOMATED NEUTROPHIL # 3.8 TH/MM3 (1.8-7.7); BASOPHIL % 0.3 % (0.0-2.0); EOSINOPHIL # 0.6 TH/MM3 (0-0.4); EOSINOPHIL % 11.7 % (0.0-4.0); HEMATOCRIT 31.8 % (35.0-46.0); HEMOGLOBIN 10.3 GM/DL (11.6-15.3); LYMPH % 10.2 % (9.0-44.0); LYMPHOCYTE # 0.6 TH/MM3 (1.0-4.8); MEAN CELL VOLUME 92.7 FL (80.0-100.0); MEAN CORPUSCULAR HGB CONC 32.3 % (32.0-36.0); MEAN PLATELET VOLUME 7.1 FL (7.0-11.0); MONO % 9.5 % (0.0-8.0); MONOCYTE # 0.5 TH/MM3 (0-0.9); NEUT % 68.3 % (16.0-70.0); PLATELET COUNT 193 TH/MM3 (150-450); RED BLOOD COUNT 3.43 MIL/MM3 (4.00-5.30); RED CELL DISTRIBUTION WIDTH 13.6 % (11.6-17.2); WHITE BLOOD COUNT 5.5 TH/MM3 (4.0-11.0)
[2017-11-24 07:17] LABS: CALCIUM 8.2 MG/DL (8.5-10.1)
[2017-11-24 07:18] LABS: BICARBONATE 27.1 MEQ/L (21.0-32.0)
[2017-11-24 07:20] LABS: CREATININE 2.1 MG/DL (0.50-1.00)
[2017-11-24] MEDS: INSULIN ASPART SUPPLEMENTAL SCALE SQ SCH ×4 (08:00→21:00)
[2017-11-24] MEDS: ISOSORBIDE MONONITRATE 60 MG CR TAB (IMDUR) PO SCH (08:02)
[2017-11-24] MEDS: NYSTATIN SUSP 500,000 U/5 ML CUP SWISH-SWAL SCH ×4 (08:49→21:00)
[2017-11-24] MEDS: METOPROLOL TARTRATE 25 MG TAB PO SCH ×2 (08:49→21:00)
[2017-11-24] MEDS: PRAMIPEXOLE DIHYDROCHLORIDE 0.25 MG TAB PO SCH (08:49)
[2017-11-24] MEDS: FUROSEMIDE 20 MG TAB PO SCH (08:49)
[2017-11-24] MEDS: SODIUM CHLORIDE 0.9% FLUSH 10 ML FLUSH IV FLUSH SCH ×2 (08:50→21:00)
[2017-11-24] MEDS: CYANOCOBALAMIN 1,000 MCG TAB PO SCH (08:50)
[2017-11-24] MEDS: DOCUSATE SODIUM 50 MG/SENNA 8.6 MG TAB PO SCH ×2 (08:50→21:00)
[2017-11-24] MEDS: ASPIRIN 81 MG CHEW TAB CHEW SCH (08:50)
[2017-11-24] MEDS: MULTIVITAMINS/MINERALS THERAPEUTIC TAB PO SCH (08:50)
[2017-11-24] MEDS: amLODIPine BESYLATE 5 MG TAB PO SCH (08:50)
[2017-11-24] MEDS: CHOLECALCIFEROL (VIT D3) 1000 UNIT TAB PO SCH (08:50)
[2017-11-24] MEDS: ANASTROZOLE 1 MG TAB PO SCH (08:50)
--- NOTE | 2017-11-24 11:18 | RADRPT ---
EXAM DATE/TIME: 11/24/2017 10:17 [facility] COMPARISON: CHEST PA & LAT, November 22, 2017, 16:29. INDICATIONS : Short of Breath MEDICAL HISTORY : None. SURGICAL HISTORY : None. ENCOUNTER: Subsequent ACUITY: 4 - 6 days PAIN SCORE: 0/10 LOCATION: chest FINDINGS: The cardiac silhouette is enlarged in transverse diameter. There is prominence of the central pulmona ry vasculature with indistinct vascular margins compatible with vascular congestion but no evidence o f overt failure. No pleural effusions are identified. There is prominence of the aortic knob is with calcification characteristic of atherosclerotic vascular disease. CONCLUSION: Cardiomegaly and findings of vascular congestion without overt failure. This is new when compared wit h the prior exam. Jon Chamberlain MD on November 24, 2017 at 11:15 Board Certified Radiologist. This report was verified electronically.
[2017-11-24] MEDS: HEPARIN SODIUM - SQ 10,000 UNITS/ML VIAL SQ SCH ×2 (11:42→23:00)
--- NOTE | 2017-11-24 13:25 | HHI.PR ---
Subjective Remarks Patient seen and examined today for follow-up on acute renal failure. Renal function continues to improve. Patient denies any new complaints today. However she states that there is a cat and dog in her room. He states that there is a cat sitting up on top of the biohazard box which is actually a red biohazard bag. She also indicates that there is a dog under the bed that she can see when I look in the direction where she is pointing there is a round spot that looks like a eyeball. If she does indicate that there is the eyeball of the dog. Upon review of the records it appears that the patient was given Benadryl last night for sleep and patient has been having hallucinations since then. Did discuss with patient's son Osiel of results and her recent hallucinations/psychosis Objective Vitals Vital Signs Date Time Temp Pulse Resp B/P (MAP) Pulse Ox O2 Delivery O2 Flow Rate FiO2 11/24/17 12:00 97.3 59 20 155/63 (93) 95 11/24/17 09:45 65 144/67 (92) 91 11/24/17 08:00 97.4 74 20 183/75 (111) 92 11/24/17 07:30 98 Nasal Cannula 2.00 11/24/17 04:00 97.9 56 16 156/71 (99) 95 11/24/17 00:00 98.6 60 18 154/68 (96) 94 11/23/17 23:20 96 Nasal Cannula 2.00 11/23/17 23:15 87 21 11/23/17 20:00 99.2 70 18 134/61 (85) 90 11/23/17 16:00 98.0 80 18 133/70 (91) 93 11/23/17 13:30 89 21 I/O 11/23/17 11/23/17 11/23/17 11/24/17 11/24/17 11/24/17 07:00 15:00 23:00 07:00 15:00 23:00 Intake Total 480 ml 600 ml Balance 480 ml 600 ml Intake Oral 480 ml 600 ml # Voids 2 3 6 # Bowel Movements 0 Result Diagram: 11/24/17 0615 11/24/17 0615 Objective Remarks GENERAL: Well-developed, well-nourished, in no acute distress. alert and completely orientated HEENT: Head is normocephalic without any lesions or masses noted. Facial features are symmetric. Eyes: Extraocular muscles are intact. Conjunctivae were clear. NECK: Supple without any masses. Trachea midline no deviation. No JVD, CARDIAC: Regular rhythm, regular rate. S1/S2 are heard. No murmurs gallops or rubs. LUNGS: Clear to auscultation bilaterally. No wheeze, rhonchi or rales. No use of accessory muscles on inspiration or expiration. ABDOMEN: Soft, nontender. Nondistended. Bowel sounds heard in all 4 quadrants. No organomegaly or masses. Negative rebound, negative guarding EXTREMITIES: No edema, pulses are equal bilaterally. No cyanosis or clubbing NEUROLOGY: Mood and affect appear appropriate. Cranial nerves II through XII grossly intact. Moving all extremities, speech is clear Urinary Catheter: No Vascular Central Line Catheter: No A/P Assessment and Plan Visual hallucinations/psychosis Likely secondary to Benadryl given for sleep CT of the brain was unremarkable Further testing with ammonia level was normal, TSH normal, Sed rate is elevated, significance indeterminate B12, folate, RPR pending Acute renal failure superimposed on chronic kidney disease, unknown stage Will need to try to contact local primary medical doctor for recent laboratory studies to verify chronicity Renal functions are improving nicely. Renal ultrasound did not indicate any acute abnormality ARB held Nephrology consulted for further recommendations Acute on chronic congestive heart failure, diastolic grade 1 Echocardiogram indicated ejection fraction 55-60% with impaired ventricular relaxation with grade 1 diastolic dysfunction Chest x-ray does indicate congestive heart failure and pulmonary edema Lower extremity ultrasound was performed which did not indicate any DVTs BMP 108 and patient with lower extremity edema Lasix 20 mg daily Strict input and output, daily weights, fluid restriction Patient is on beta-dakotah, KIERSTEN inhibitor was not started secondary to acute renal failure. Resume ARB- Recently diagnosed with UTI and finished course of antibiotics, Urinalysis done emergency department does indicate contamination with squamous epithelial cells 6-8 Urine culture no growth for 48 hours Antibiotics were discontinued Hypertension, chronic: Blood pressure mildly elevated Continue Norvasc 5 mg daily Continue Lasix 20 mg daily Continue Imdur 120 mg daily Continue metoprolol 25 mg twice daily Resume losartan 100 mg daily once cleared by nephrology Clonidine as needed Hypokalemia: Continue monitor and replete as needed Hypothyroidism, chronic: Continue home Synthroid. History of breast cancer Continue Arimidex DVT prevention Subcutaneous heparin Maico Corbin Nov 24, 2017 13:25
--- NOTE | 2017-11-24 16:12 | RADRPT ---
EXAM DATE/TIME: 11/24/2017 15:50 [facility] COMPARISON: No previous studies available for comparison. INDICATIONS : Altered mental status. Hallucinating. RADIATION DOSE: 56.86 CTDIvol (mGy) MEDICAL HISTORY : Carcinoma, breast. Congestive heart failure. Carcinoma, thyroid.Hypertension. SURGICAL HISTORY : Appendectomy. ENCOUNTER: Initial ACUITY: 1 day PAIN SCALE: 0/10 LOCATION: cranial TECHNIQUE: Multiple contiguous axial images were obtained of the head. Using automated exposure control and adj ustment of the mA and/or kV according to patient size, radiation dose was kept as low as reasonably a chievable to obtain optimal diagnostic quality images. DICOM format image data is available electro nically for review and comparison. FINDINGS: CEREBRUM: The ventricles are normal for age. No evidence of midline shift, mass lesion, hemorrhage or acute in farction. No extra-axial fluid collections are seen. POSTERIOR FOSSA: The cerebellum and brainstem are intact. The 4th ventricle is midline. The cerebellopontine angle i s unremarkable. EXTRACRANIAL: The visualized portion of the orbits is intact. SKULL: The calvaria is intact. No evidence of skull fracture. CONCLUSION: No acute disease. Alfonso Leigh MD on November 24, 2017 at 16:09 Board Certified Radiologist. This report was verified electronically.
[2017-11-24 18:03] LABS: FOLATE GREATER THAN 20.0 NG/ML (3.1-17.5)
--- NOTE | 2017-11-24 19:48 | PD.CONS ---
HPI Service Nephrology Consult Requested By Dr. Mills Reason for Consult [facility] Primary Care Physician Non-Staff History of Present Illness Patient is a 87-year-old white female with a history of frequent urinary tract infections, she is from [facility] and seeing a urologist for many years, she stated that he could not find the cause of recurrent infections and she was finally discharged from his practice as he retired, patient has been treated for urinary tract infection she has RBCs present she complains of taking longer than usual to urinate, patient was admitted to creatinine was 2.4 it has declined to 2.1 she is being treated for urinary tract infection. UA showed RBCs are present. Past Family Social History Allergies: Coded Allergies: diphtheria,pertussis (acellular),te (Verified Allergy, Unknown, 11/22/17) Past Medical History History of CAD Hypertension Hypercholesterolemia Hypertension Thyroid disease History of breast cancer History of recurrent UTI and workup by urology Past Surgical History Appendectomy Right hip replacement Right shoulder replacement Tympanostomy tube Unspecified vascular surgery of bilateral lower extremities Right breast lumpectomy Reported Medications Reported Meds & Active Scripts Active Reported Hydrochlorothiazide 12.5 Mg Tab 12.5 Mg PO DAILY Lantus Solostar Pen Inj (Insulin Glargine) 300 Unit/3 Ml Pen 15 Units SQ HS Vitamin D3 (Cholecalciferol) 2,000 Unit Cap 2,000 Units PO DAILY Pramipexole (Pramipexole Dihydrochloride) 1 Mg Tab 1 Mg PO HS Pramipexole (Pramipexole Dihydrochloride) 0.5 Mg Tab 0.5 Mg PO DAILY Metoprolol Tartrate 25 Mg Tab 25 Mg PO BID Losartan (Losartan Potassium) 100 Mg Tab 100 Mg PO DAILY Levothyroxine (Levothyroxine Sodium) 88 Mcg Tab 88 Mcg PO DAILY Isosorbide Mononitrate ER (Isosorbide Mononitrate) 120 Mg Esperanza 120 Mg PO DAILY Glimepiride 4 Mg Tab 4 Mg PO DAILY Take with breakfast or first main meal B-12 (Cyanocobalamin) 1,000 Mcg Subl 1,000 Mcg SL DAILY Centrum (Multiple Vitamins W/ Minerals) 1 Chew 1 Tab CHEW DAILY Atorvastatin (Atorvastatin Calcium) 10 Mg Tab 10 Mg PO HS Aspirin 81 Mg Chew 81 Mg CHEW DAILY Anastrozole 1 Mg Tab 1 Mg PO DAILY Amlodipine (Amlodipine Besylate) 2.5 Mg Tab 2.5 Mg PO DAILY Amitriptyline (Amitriptyline HCl) 50 Mg Tab 50 Mg PO HS Active Ordered Medications Current Medications Medications (Trade) Dose Ordered Sig/Ric Route Start Time Stop Time Status Last Admin (NS Flush) 2 ml UNSCH PRN IV FLUSH 11/22/17 14:00 (NS Flush) 2 ml BID IV FLUSH 11/22/17 21:00 11/24/17 08:50 (Tylenol) 650 mg Q4H PRN PO 11/22/17 14:00 (Zofran Inj) 4 mg Q6H PRN IVP 11/22/17 14:00 (Heparin Inj) 5,000 units Q12H SQ 11/22/17 23:00 11/24/17 11:42 (Narcan Inj) 0.4 mg UNSCH PRN IV PUSH 11/22/17 14:00 (Haleigh-Colace) 1 tab BID PO 11/22/17 21:00 11/24/17 08:50 (Milk Of Magnesia Liq) 30 ml Q12H PRN PO 11/22/17 14:00 (Senokot) 17.2 mg Q12H PRN PO 11/22/17 14:00 11/22/17 15:58 (Dulcolax Supp) 10 mg DAILY PRN RECTAL 11/22/17 14:00 11/23/17 14:14 (Elavil) 50 mg HS PO 11/22/17 21:00 11/23/17 21:19 (Arimidex) 1 mg DAILY PO 11/23/17 09:00 11/24/17 08:50 (Aspirin Chew) 81 mg DAILY CHEW 11/23/17 09:00 11/24/17 08:50 (Lipitor) 10 mg HS PO 11/22/17 21:00 11/23/17 21:19 (Vitamin D3) 2,000 units DAILY PO 11/23/17 09:00 11/24/17 08:50 (Imdur) 120 mg DAILY@0700 PO 11/23/17 07:00 11/24/17 08:02 (Synthroid) 88 mcg DAILY@0600 PO 11/23/17 06:00 11/24/17 05:40 (Lopressor) 25 mg BID PO 11/22/17 21:00 11/24/17 08:49 (Theragran M Tab) 1 tab DAILY PO 11/23/17 09:00 11/24/17 08:50 (Mirapex) 1 mg HS PO 11/22/17 21:00 11/23/17 21:19 (Vitamin B12) 1,000 mcg DAILY PO 11/23/17 09:00 11/24/17 08:50 (Mirapex) 0.5 mg DAILY PO 11/23/17 09:00 11/24/17 08:49 (D50w (Vial) Inj) 50 ml UNSCH PRN IV PUSH 11/22/17 16:15 (Glucagon Inj) 1 mg UNSCH PRN OTHER 11/22/17 16:15 (NovoLOG SUPPLEMENTAL SCALE) 1 ACHS SLIDING SCALE SQ 11/22/17 17:00 11/24/17 12:00 (Catapres) 0.1 mg Q6H PRN PO 11/22/17 16:15 11/22/17 17:23 (Tessalon) 100 mg TID PRN PO 11/23/17 10:15 11/23/17 12:16 (Lasix) 20 mg DAILY PO 11/23/17 11:00 11/24/17 08:49 (Norvasc) 5 mg DAILY PO 11/24/17 09:00 11/24/17 08:50 (Mycostatin Liq) 5 ml QID SWISH-SWAL 11/23/17 18:00 11/24/17 18:25 Family History Noncontributory Social History Denies smoking or alcohol use Physical Exam Vital Signs Vital Signs Date Time Temp Pulse Resp B/P (MAP) Pulse Ox O2 Delivery O2 Flow Rate FiO2 11/24/17 16:00 98.2 61 20 156/71 (99) 92 11/24/17 15:00 71 11/24/17 12:00 97.3 59 20 155/63 (93) 95 11/24/17 09:45 65 144/67 (92) 91 11/24/17 08:00 97.4 74 20 183/75 (111) 92 11/24/17 07:30 98 Nasal Cannula 2.00 11/24/17 07:00 81 11/24/17 04:00 97.9 56 16 156/71 (99) 95 11/24/17 00:00 98.6 60 18 154/68 (96) 94 11/23/17 23:20 96 Nasal Cannula 2.00 11/23/17 23:15 87 21 11/23/17 20:00 99.2 70 18 134/61 (85) 90 Physical Exam GENERAL: Well-nourished, well-developed patient. SKIN: Warm and dry. HEAD: Normocephalic. EYES: No scleral icterus. No injection or drainage. NECK: Supple, trachea midline. No JVD or lymphadenopathy. CARDIOVASCULAR: Regular rate and rhythm without murmurs, gallops, or rubs. RESPIRATORY: Breath sounds equal bilaterally. No accessory muscle use. GASTROINTESTINAL: Abdomen soft, non-tender, nondistended. EXTREMITIES: No cyanosis, or edema. NEUROLOGICAL: Awake, alert, and oriented x 3. Non-focal. Laboratory Laboratory Tests Test 11/24/17 06:15 11/24/17 14:03 White Blood Count 5.5 Red Blood Count 3.43 Hemoglobin 10.3 Hematocrit 31.8 Mean Corpuscular Volume 92.7 Mean Corpuscular Hemoglobin 30.0 Mean Corpuscular Hemoglobin Concent 32.3 Red Cell Distribution Width 13.6 Platelet Count 193 Mean Platelet Volume 7.1 Neutrophils (%) (Auto) 68.3 Lymphocytes (%) (Auto) 10.2 Monocytes (%) (Auto) 9.5 Eosinophils (%) (Auto) 11.7 Basophils (%) (Auto) 0.3 Neutrophils # (Auto) 3.8 Lymphocytes # (Auto) 0.6 Monocytes # (Auto) 0.5 Eosinophils # (Auto) 0.6 Basophils # (Auto) 0.0 CBC Comment DIFF FINAL Differential Comment Erythrocyte Sedimentation Rate 77 Blood Urea Nitrogen 33 Creatinine 2.10 Random Glucose 104 Calcium Level 8.2 Sodium Level 140 Potassium Level 3.6 Chloride Level 106 Carbon Dioxide Level 27.1 Anion Gap 7 Estimat Glomerular Filtration Rate 22 Vitamin B12 Level 1610 Folate GREATER THAN 20.0 Thyroid Stimulating Hormone 3rd Gen 1.140 Ammonia 11 Date/Time Source Procedure Growth Status 11/22/17 08:30 Nasal Aspirate Influenza Types A,B Antigen (LISA) - Final NEGATIVE FOR FLU A AND B ANTIGEN.... Complete 11/22/17 08:40 Urine Clean Catch Urine Culture - Final NO GROWTH IN 48 HOURS. Complete Result Diagram: 11/24/1761411/24/17614 Imaging Last Impressions Head CT 11/24/17 0000 Signed Impressions: Service Date/Time: Friday, November 24, 2017 15:50 - CONCLUSION: No acute disease. Alfonso Leigh MD Chest X-Ray 11/24/17 0000 Signed Impressions: Service Date/Time: Friday, November 24, 2017 10:17 - CONCLUSION: Cardiomegaly and findings of vascular congestion without overt failure. This is new when compared with the prior exam. Jon Chamberlain MD Lower Extremity Ultrasound 11/23/17 0000 Signed Impressions: Service Date/Time: Thursday, November 23, 2017 16:25 - CONCLUSION: Negative study. No venous thrombosis of either lower extremity. Howard Casiano MD Renal Ultrasound 11/22/17 0000 Signed Impressions: Service Date/Time: Wednesday, November 22, 2017 15:33 - CONCLUSION: No acute disease. Howard Askew MD Assessment and Plan Problem List: (1) Renal insufficiency ICD Codes: N28.9 - Disorder of kidney and ureter, unspecified Status: Acute Plan: This appears to be prerenal and is improving continue to hydrate herself Patient has isolated hematuria This is been worked up in the past by urology She appears to have bladder problem, bladder cancer should be ruled out Low-lying bladder with dysuria Patient ESR is high and I will evaluate for immunological disease process by ordering WIL, Anca, C3 and C4 She will need urological evaluation as outpatient If creatinine continues to decline she can be discharged (2) UTI (urinary tract infection) ICD Codes: N39.0 - Urinary tract infection, site not specified Status: Acute Plan: Cultures are negative Problem Qualifiers (1) UTI (urinary tract infection): Qualified Codes: N39.0 - Urinary tract infection, site not specified; R31.9 - Hematuria, unspecified Emily Bui MD Nov 24, 2017 19:48
[2017-11-24] MEDS: AMITRIPTYLINE HCL 50 MG TAB PO SCH (21:00)
[2017-11-24] MEDS: PRAMIPEXOLE DIHYDROCHLORIDE 1 MG TAB PO SCH (21:00)
[2017-11-24] MEDS: ATORVASTATIN 10 MG TAB PO SCH (21:00)
[2017-11-25] VITALS: BP 174/74; PULSE 60; RESP 22; TEMP 98.8; O2SAT 91
[2017-11-25 04:00] VITALS: BP 190/82; PULSE 68; RESP 22; TEMP 97.4; O2SAT 96
[2017-11-25] MEDS: LEVOTHYROXINE SODIUM 88 MCG TAB PO SCH (06:00)
[2017-11-25] MEDS: ISOSORBIDE MONONITRATE 60 MG CR TAB (IMDUR) PO SCH (06:08)
[2017-11-25 07:30] VITALS: O2SAT 90
[2017-11-25 07:46] LABS: AUTOMATED NEUTROPHIL # 4.5 TH/MM3 (1.8-7.7); BASOPHIL # 0.1 TH/MM3 (0-0.2); EOSINOPHIL # 0.8 TH/MM3 (0-0.4); EOSINOPHIL % 11.3 % (0.0-4.0); HEMATOCRIT 35.4 % (35.0-46.0); HEMOGLOBIN 11.6 GM/DL (11.6-15.3); LYMPH % 13.2 % (9.0-44.0); LYMPHOCYTE # 0.9 TH/MM3 (1.0-4.8); MEAN CORPUSCULAR HEMOGLOBIN 30.2 PG (27.0-34.0); MEAN CORPUSCULAR HGB CONC 32.8 % (32.0-36.0); MEAN PLATELET VOLUME 7.5 FL (7.0-11.0); MONO % 10.7 % (0.0-8.0); MONOCYTE # 0.8 TH/MM3 (0-0.9); NEUT % 63.8 % (16.0-70.0); PLATELET COUNT 222 TH/MM3 (150-450); RED BLOOD COUNT 3.84 MIL/MM3 (4.00-5.30); RED CELL DISTRIBUTION WIDTH 13.4 % (11.6-17.2); WHITE BLOOD COUNT 7.1 TH/MM3 (4.0-11.0)
[2017-11-25 08:00] VITALS: BP 165/74; PULSE 74; RESP 20; TEMP 98.5; O2SAT 96
[2017-11-25] MEDS: INSULIN ASPART SUPPLEMENTAL SCALE SQ SCH (08:19)
[2017-11-25] MEDS: MULTIVITAMINS/MINERALS THERAPEUTIC TAB PO SCH (08:20)
[2017-11-25] MEDS: METOPROLOL TARTRATE 25 MG TAB PO SCH (08:20)
[2017-11-25] MEDS: PRAMIPEXOLE DIHYDROCHLORIDE 0.25 MG TAB PO SCH (08:20)
[2017-11-25] MEDS: CYANOCOBALAMIN 1,000 MCG TAB PO SCH (08:20)
[2017-11-25] MEDS: ASPIRIN 81 MG CHEW TAB CHEW SCH (08:20)
[2017-11-25] MEDS: amLODIPine BESYLATE 5 MG TAB PO SCH (08:20)
[2017-11-25] MEDS: FUROSEMIDE 20 MG TAB PO SCH (08:20)
[2017-11-25] MEDS: NYSTATIN SUSP 500,000 U/5 ML CUP SWISH-SWAL SCH (08:20)
[2017-11-25] MEDS: SODIUM CHLORIDE 0.9% FLUSH 10 ML FLUSH IV FLUSH SCH (08:21)
[2017-11-25] MEDS: DOCUSATE SODIUM 50 MG/SENNA 8.6 MG TAB PO SCH (08:21)
[2017-11-25] MEDS: CHOLECALCIFEROL (VIT D3) 1000 UNIT TAB PO SCH (08:21)
[2017-11-25] MEDS: ANASTROZOLE 1 MG TAB PO SCH (08:21)
[2017-11-25 08:22] LABS: CREATININE 1.8 MG/DL (0.50-1.00); MAGNESIUM 2.3 MG/DL (1.5-2.5)
[2017-11-25] MEDS ORDERED: FURO20TA PO (09:34)
[2017-11-25] MEDS ORDERED: LOSA50TA PO (09:34)
--- NOTE | 2017-11-25 09:35 | HHI.DCPOC ---
Discharge Care Plan Diagnosis: (1) Renal insufficiency Goals to Promote Your Health * To prevent worsening of your condition and complications * To maintain your health at the optimal level Directions to Meet Your Goals Take your medications as prescribed Follow your dietary instruction Follow activity as directed Keep your appointments as scheduled Take your immunizations and boosters as scheduled If your symptoms worsen call your PCP, if no PCP go to Urgent Care Center or Emergency Room Smoking is Dangerous to Your Health. Avoid second hand smoke Call the 24-hour hour crisis hotline for domestic abuse at Maico Corbin Nov 25, 2017 09:35
--- NOTE | 2017-11-25 09:36 | HHI.FF ---
Face to Face Verification Diagnosis: (1) Renal insufficiency Physical Therapy Order: Evaluate and Treat, Improve ambulation, Strength and gait training Home Health Nursing Order: Medical education CHF education Nursing assessment with vital signs I have seen patient Shanice Quevedo on 11/25/17. My clinical findings support the need for the requested home health care services because: Deconditioned w/ increased weakness Limited ability to care for self I certify that my clinical findings support that this patient is homebound because: Unsteady gait/balance Unsafe to leave home unassisted Unable to use public transportation Maico Corbin Nov 25, 2017 09:36
[2017-11-25] MEDS ORDERED: LOSARTAN 50 MG TAB PO SCH (09:45)
[2017-11-25 10:30] LABS: COMPLEMENT C3 126 MG/DL (90-180); COMPLEMENT C4 30 MG/DL (10-40)
[2017-11-25] MEDS: HEPARIN SODIUM - SQ 10,000 UNITS/ML VIAL SQ SCH (11:00)
--- NOTE | 2017-11-25 14:21 | HHI.DS ---
Discharge Summary Admission Date Nov 23, 2017 at 10:40 Discharge Date: Nov 25, 2017 Admitting Diagnosis UTI, renal insufficiency (1) UTI (urinary tract infection) ICD Code: N39.0 - Urinary tract infection, site not specified Status: Acute (2) Renal insufficiency ICD Code: N28.9 - Disorder of kidney and ureter, unspecified Status: Acute Procedures ECHOCARDIOGRAM CONCLUSIONS The left ventricular systolic function is low normal with an estimated ejection fraction in the range of 55- 60%. Doppler parameters are consistent with impaired left ventricular relaxtion ( grade 1 diastolic dysfunction). Trace mitral valve regurgitation. There is trace tricuspid valve regurgitation. Brief History - From Admission This is an 87-year-old female patient with a known medical history of CAD, hypercholesterolemia, diabetes, hypertension and questionable CHF who presented to the ED with complaints of generalized weakness, fevers, chills, nausea and occasional vomiting for 2 days. Patient states she was diagnosed with a UTI last week finished her antibiotic dose this morning and despite antibiotics course her symptoms have not improved but have actually worsened. She states she has bilateral CVA tenderness and hip pain, rating it a 10 out of 10 on pain scale at its worst. Denies any dysuria. Does admit to poor appetite and occasional vomiting. She also states that she has a history of PVD and history of following with a vascular surgeon for lower extremity vascular repair, but over the course of the last 2 weeks she has developed bilateral lower extremity redness and swelling and increasing pain with walking. She does have an appointment on Friday to follow-up with her vascular surgeon. She just recently moved down to [place] from [facility] and has not established with the PCP yet. Patient does live alone in assisted living. CBC/BMP: 11/25/17 0618 11/25/17 0618 Significant Findings Laboratory Tests Test 11/23/17 08:25 11/24/17 06:15 11/24/17 14:03 11/24/17 21:30 Red Blood Count 3.53 MIL/MM3 (4.00-5.30) 3.43 MIL/MM3 (4.00-5.30) Hemoglobin 10.7 GM/DL (11.6-15.3) 10.3 GM/DL (11.6-15.3) Hematocrit 32.4 % (35.0-46.0) 31.8 % (35.0-46.0) Neutrophils (%) (Auto) 77.2 % (16.0-70.0) Lymphocytes (%) (Auto) 7.4 % (9.0-44.0) Eosinophils (%) (Auto) 8.4 % (0.0-4.0) 11.7 % (0.0-4.0) Lymphocytes # (Auto) 0.5 TH/MM3 (1.0-4.8) 0.6 TH/MM3 (1.0-4.8) Eosinophils # (Auto) 0.5 TH/MM3 (0-0.4) 0.6 TH/MM3 (0-0.4) Blood Urea Nitrogen 36 MG/DL (7-18) 33 MG/DL (7-18) Creatinine 2.40 MG/DL (0.50-1.00) 2.10 MG/DL (0.50-1.00) Random Glucose 126 MG/DL (74-106) Calcium Level 8.0 MG/DL (8.5-10.1) 8.2 MG/DL (8.5-10.1) Estimat Glomerular Filtration Rate 19 ML/MIN (>89) 22 ML/MIN (>89) Monocytes (%) (Auto) 9.5 % (0.0-8.0) Erythrocyte Sedimentation Rate 77 mm/hr (0-30) Vitamin B12 Level 1610 PG/ML (193-986) Folate GREATER THAN 20.0 NG/ML Test 11/25/17 06:18 Red Blood Count 3.84 MIL/MM3 (4.00-5.30) Monocytes (%) (Auto) 10.7 % (0.0-8.0) Eosinophils (%) (Auto) 11.3 % (0.0-4.0) Lymphocytes # (Auto) 0.9 TH/MM3 (1.0-4.8) Eosinophils # (Auto) 0.8 TH/MM3 (0-0.4) Blood Urea Nitrogen 28 MG/DL (7-18) Creatinine 1.80 MG/DL (0.50-1.00) Random Glucose 161 MG/DL (74-106) Estimat Glomerular Filtration Rate 26 ML/MIN (>89) Imaging Last Impressions Head CT 11/24/17 0000 Signed Impressions: Service Date/Time: Friday, November 24, 2017 15:50 - CONCLUSION: No acute disease. Alfonso Leigh MD Chest X-Ray 11/24/17 0000 Signed Impressions: Service Date/Time: Friday, November 24, 2017 10:17 - CONCLUSION: Cardiomegaly and findings of vascular congestion without overt failure. This is new when compared with the prior exam. Jon Chamberlain MD Lower Extremity Ultrasound 11/23/17 0000 Signed Impressions: Service Date/Time: Thursday, November 23, 2017 16:25 - CONCLUSION: Negative study. No venous thrombosis of either lower extremity. Howard Casiano MD Renal Ultrasound 11/22/17 0000 Signed Impressions: Service Date/Time: Wednesday, November 22, 2017 15:33 - CONCLUSION: No acute disease. Howard Askew MD PE at Discharge GENERAL: Well-developed, well-nourished, in no acute distress. alert and completely orientated HEENT: Head is normocephalic without any lesions or masses noted. Facial features are symmetric. Eyes: Extraocular muscles are intact. Conjunctivae were clear. NECK: Supple without any masses. Trachea midline no deviation. No JVD, CARDIAC: Regular rhythm, regular rate. S1/S2 are heard. No murmurs gallops or rubs. LUNGS: Clear to auscultation bilaterally. No wheeze, rhonchi or rales. No use of accessory muscles on inspiration or expiration. ABDOMEN: Soft, nontender. Nondistended. Bowel sounds heard in all 4 quadrants. No organomegaly or masses. Negative rebound, negative guarding EXTREMITIES: No edema, pulses are equal bilaterally. No cyanosis or clubbing NEUROLOGY: Mood and affect appear appropriate. Cranial nerves II through XII grossly intact. Moving all extremities, speech is clear Hospital Course Is an 87-year-old female with known history of coronary disease, hyperlipidemia, diabetes, hypertension possible underlying congestive heart failure and chronic kidney disease, however no previous admissions to the hospital for complete evaluation. Patient just moved here from [place] in her primary medical doctors were down there. Patient came in from local assisted living facility because she had generalized weakness, fever, chills, nausea, vomiting for 2 days prior. Patient just recently was treated for urinary tract infection when patient presented to the emergency department she was found to have signs of dehydration. Lower extremity edema. Patient was started on empirical antibiotics until cultures were obtained. Patient did have urine culture performed which did show no growth for 48 hours influenza testing was unremarkable. Antibiotics were discontinued. Patient did undergo mild diuresis which him had significant improvement of her lower extremity edema patient did have acute on chronic diastolic congestive heart failure. With significant improvement of edema with the Lasix. She did have ultrasound performed of her lower extremity which did not indicate any DVT. Chest x-ray did show congestive heart failure pulmonary edema. Patient was on beta-dakotah , KIERSTEN inhibitor was held secondary to acute renal failure. Patient did have acute renal failure superimposed on chronic kidney disease which did improve with the patient stay in the hospital. Prevention Specialist was consulted who indicated the patient did have elevated sed rate which could indicate autoimmune abnormality. Further workup was performed and awaiting testing. Prevention Specialist indicated that since renal functions were improving on a daily basis and continue to improve patient may be discharged and follow-up in the outpatient setting. Patient did tolerate treatment well. She did have an episode of confusion during her stay which usually starts in the late evening. Patient was given Benadryl 50 mg 1 evening and then the next morning she thought that there was a cat and a dog in her room. Benadryl was discontinued at that time and her mentation did improve she is alert and oriented 4 and the dog and cat are no longer in her room. There is no other indications of any hallucinations or psychosis. Patient much improved at this time. She is very eager to go back to her home. We will plan discharge back to assisted living facility once arrangements made. Pt Condition on Discharge: Stable Discharge Disposition: [facility] Discharge Time: > 30 minutes Discharge Instructions DIET: Follow Instructions for: Heart Healthy Diet Activities you can perform: Regular-No Restrictions Follow up Referrals: Nephrology - 2 Weeks PCP Follow-up - 1 Week New Medications: Losartan (Losartan) 50 Mg Tab 50 MG PO DAILY for Blood Pressure Management, #30 TAB 0 Refills Furosemide (Furosemide) 20 Mg Tab 20 MG PO DAILY for Blood Pressure Management for 30 Days, #30 TAB Continued Medications: Amitriptyline (Amitriptyline) 50 Mg Tab 50 MG PO HS, TAB Amlodipine (Amlodipine) 2.5 Mg Tab 2.5 MG PO DAILY for Blood Pressure Management, #30 TAB 0 Refills Anastrozole (Anastrozole) 1 Mg Tab 1 MG PO DAILY for Breast Cancer, #30 TAB 0 Refills Aspirin (Aspirin) 81 Mg Chew 81 MG CHEW DAILY, TAB 0 Refills Atorvastatin (Atorvastatin) 10 Mg Tab 10 MG PO HS for Cholesterol Management, #30 TAB 0 Refills Cholecalciferol (Vitamin D3) 2,000 Unit Cap 2000 UNITS PO DAILY for Nutritional Supplement, #1 BOTTLE 0 Refills Cyanocobalamin (B-12) 1,000 Mcg Subl 1000 MCG SL DAILY for Nutritional Supplement, TAB.SL 0 Refills Glimepiride (Glimepiride) 4 Mg Tab 4 MG PO DAILY for Blood Sugar Management, #30 TAB 0 Refills Take with breakfast or first main meal Insulin Glargine Inj (Lantus Solostar Pen Inj) 300 Unit/3 Ml Pen 15 UNITS SQ HS for Blood Sugar Management, PEN 0 Refills Isosorbide Mononitrate ER (Isosorbide Mononitrate ER) 120 Mg Esperanza 120 MG PO DAILY for Prevent Chest Pain, #30 TAB 0 Refills Levothyroxine (Levothyroxine) 88 Mcg Tab 88 MCG PO DAILY for Thyroid, #30 TAB 0 Refills Metoprolol Tartrate (Metoprolol Tartrate) 25 Mg Tab 25 MG PO BID, #60 TAB 0 Refills Multiple Vitamins W/ Minerals (Centrum) 1 Chew 1 TAB CHEW DAILY for Nutritional Supplement, TAB 0 Refills Pramipexole (Pramipexole) 0.5 Mg Tab 0.5 MG PO DAILY for Parkinson Disease Mgmt, #30 TAB 0 Refills Pramipexole (Pramipexole) 1 Mg Tab 1 MG PO HS for Parkinson Disease Mgmt, #30 TAB 0 Refills Discontinued Medications: Hydrochlorothiazide (Hydrochlorothiazide) 12.5 Mg Tab 12.5 MG PO DAILY, #30 TAB 0 Refills Losartan (Losartan) 100 Mg Tab 100 MG PO DAILY for Blood Pressure Management, #30 TAB 0 Refills Maico Corbin Nov 25, 2017 14:21
== END 2017-11-25 11:50 | DRG 291 ==
LOC: PHED 08:05 → PHEDA 11:30 → PH3B 12:21 → OBSVTOIN 11-23 10:40 → PH3B 11-23 22:10
PROVIDERS: ADMIT Hospitalist; ATTEND Hospitalist
DX: I13.0 Hypertensive heart and chronic kidney disease with heart failure and stage 1 through stage 4 chronic kidney disease, or unspecified chronic kidney disease (principal); I50.33 Acute on chronic diastolic (congestive) heart failure; N17.9 Acute kidney failure, unspecified; N18.9 Chronic kidney disease, unspecified; E11.22 Type 2 diabetes mellitus with diabetic chronic kidney disease; Z79.4 Long term (current) use of insulin; Z79.84 Long term (current) use of oral hypoglycemic drugs; G20 Parkinson's disease; N39.0 Urinary tract infection, site not specified; R44.3 Hallucinations, unspecified; T45.0X5A Adverse effect of antiallergic and antiemetic drugs, initial encounter; Y92.230 Patient room in hospital as the place of occurrence of the external cause; I25.10 Atherosclerotic heart disease of native coronary artery without angina pectoris; Z79.82 Long term (current) use of aspirin; E87.6 Hypokalemia; E03.9 Hypothyroidism, unspecified; J44.9 Chronic obstructive pulmonary disease, unspecified; E78.00 Pure hypercholesterolemia, unspecified; Z87.440 Personal history of urinary (tract) infections; Z85.3 Personal history of malignant neoplasm of breast; Z96.641 Presence of right artificial hip joint; Z96.611 Presence of right artificial shoulder joint
CPT/HCPCS: 70450; 71045; 71046; 76775; 80048; 80053; 81001; 82140; 82607; 82746; 82948; 83735; 83880; 83935; 84443; 85025; 85652; 86021; 86038; 86160; 86592; 87086; 87804; 93306; 93970; 94150; 96361; 96365; 96366; 96372; G0378; G8987-GP; G8988-GP; J0696; J1644; J1815; J7030; Q0163